=== PATIENT | male | born 1950 | race Caucasian/White ===

== ENCOUNTER 2018-03-31 06:36 | Inpatient (IN) | payer BC, MEDICARE ==
[2018-03-31] MEDS: GABAPENTIN 300 MG CAP PO ×2 (06:00→20:39)
[2018-03-31] MEDS: CEFAZOLIN 2 GM/50 ML (PMX) 50 ML IVPB (06:00)
[2018-03-31] MEDS: DEXAMETHASONE 1 MG TAB PO (06:00)
[2018-03-31] MEDS: TRANEXAMIC ACID 1,000 MG in DEXTROSE 5% 100 ML IVPB (06:00)
[2018-03-31] MEDS: traMADol 50 MG TAB PO (06:00)
[~2018-03-31 06:36] MED LIST: BUPIVACAINE 0.5% (SDV) 30 ML, morphine SULFATE (PF) 8 MG, EPINEPHrine 0.3 MG, KETOROLAC... IRR; LACTATED RINGER'S 1,000 ML IV*
[2018-03-31] MEDS ORDERED: EPHEDrine SULFATE 50 MG/5 ML SYG (07:00)
[2018-03-31] MEDS ORDERED: CEFAZOLIN 1 GM INJ (07:11)
[2018-03-31] MEDS ORDERED: PROPOFOL 20 ML (07:11)
[2018-03-31] MEDS ORDERED: ROCURONIUM 50 MG INJ (07:11)
[2018-03-31] MEDS ORDERED: FENTAnyl 50 MCG/ML VIAL ×2 (07:12→08:52)
[2018-03-31] MEDS ORDERED: MIDAZOLAM 1 MG/ML 2 ML INJ (07:12)
[2018-03-31] MEDS ORDERED: ROPIVACAINE 0.5 % 30 ML VIAL (07:12)
[2018-03-31] MEDS ORDERED: hydrALAzine 20 MG INJ IV (08:00)
[2018-03-31] MEDS ORDERED: HYDROmorphONE 1 MG/5 ML IV SYRINGE IV ×3 (08:00)
[2018-03-31] MEDS ORDERED: FENTAnyl 50 MCG/ML VIAL IV ×3 (08:00)
[2018-03-31] MEDS ORDERED: LABETALOL HCL 20MG INJ IV (08:00)
[2018-03-31] MEDS ORDERED: METOCLOPRAMIDE 10 MG INJ IV (08:00)
[2018-03-31] MEDS ORDERED: OXYCODONE/ACETAMINOPHEN (5/325) TAB PO ×3 (08:00→10:30)
[2018-03-31] MEDS ORDERED: MEPERIDINE 25 MG INJ IV (08:00)
[2018-03-31] MEDS ORDERED: EPHEDrine SULFATE 50 MG/5 ML SYG IV (08:00)
[2018-03-31] MEDS ORDERED: DIPHENHYDRAMINE 50 MG INJ IV ×2 (08:00→10:30)
[2018-03-31] MEDS ORDERED: ONDANSETRON 4 MG INJ IV ×2 (08:00→10:30)
[2018-03-31] MEDS: THROMBIN 5000 UNIT VIAL (08:29)
[2018-03-31] MEDS: BUPIVACAINE 0.5%/EPI (SDV) 30 ML INJ (08:29)
[2018-03-31] MEDS: CA CHLORIDE 10% 10 ML SYRINGE (08:29)
[2018-03-31] MEDS: POLYMYXIN/BACITRACIN 1L IRRIG (08:29)
[2018-03-31] MEDS ORDERED: ACETAMINOPHEN 1000MG/100ML IV 100 ML (09:13)
[2018-03-31] MEDS ORDERED: DEXAMETHASONE 4 MG/ML 1 ML INJ (09:14)
[2018-03-31] MEDS ORDERED: ONDANSETRON 4 MG INJ (09:14)
[2018-03-31] MEDS ORDERED: KETOROLAC 30 MG INJ (09:14)
[2018-03-31] MEDS ORDERED: METOCLOPRAMIDE 10 MG INJ (09:14)
[2018-03-31] MEDS ORDERED: LABETALOL HCL 20MG INJ (09:33)
[2018-03-31] MEDS ORDERED: PHENYLephrine (100 MCG/ML) 5ML SYG (10:08)
[2018-03-31] MEDS ORDERED: SUGAMMADEX SODIUM 200 MG/2 ML VIAL IV (10:10)
[2018-03-31] MEDS ORDERED: ZOLPIDEM 5 MG TAB PO (10:30)
[2018-03-31] MEDS ORDERED: MAGNESIUM HYDROXIDE 30ML CUP PO (10:30)
[2018-03-31] MEDS ORDERED: ACETAMINOPHEN 500 MG TAB PO (10:30)
[2018-03-31] MEDS ORDERED: morphine 2 MG INJ IV ×2 (10:30)
[2018-03-31] MEDS: TRANEXAMIC ACID 1,000 MG in DEXTROSE 5% 100 ML IV (10:49)
[2018-03-31] MEDS: DEXAMETHASONE 2 MG TAB PO ×3 (12:27→23:27)
[2018-03-31] MEDS: KETOROLAC 15 MG INJ IV (12:27)
[2018-03-31] MEDS: CEFAZOLIN 1 GM/50 ML (PMX) 50 ML IVPB ×2 (15:00→23:27)
[2018-03-31] MEDS: LATANOPROST 0.005% 2.5 ML OPH BOTH EYES (20:39)
[2018-03-31] MEDS: SENNA/DOCUSATE NA (8.6MG/50MG) TAB PO (20:39)
[2018-03-31] MEDS: OXYCODONE/ACETAMINOPHEN (5/325) TAB PO (20:39)
[2018-03-31] MEDS: ATORVASTATIN 10 MG TAB PO (20:39)
[2018-04-01] MEDS: CEFAZOLIN 1 GM/50 ML (PMX) 50 ML IVPB (05:54)
[2018-04-01] MEDS: DEXAMETHASONE 2 MG TAB PO (05:54)
[2018-04-01] MEDS: SENNA/DOCUSATE NA (8.6MG/50MG) TAB PO (08:31)
[2018-04-01] MEDS: ASPIRIN 81 MG TAB PO (08:31)
[2018-04-01] MEDS: OXYCODONE/ACETAMINOPHEN (5/325) TAB PO (08:31)
== END 2018-04-01 10:20 | disposition home or self-care (01) | DRG 483 ==
LOC: SDS 06:36 → REC 10:25 → MS1 11:46
PROC: 0RRJ00Z Replacement of Right Shoulder Joint with Reverse Ball and Socket Synthetic Substitute, Open Approach (ICD-10-PCS; principal; 2018-03-31 08:30)
PROC: 0PB90ZZ Excision of Right Clavicle, Open Approach (ICD-10-PCS; 2018-03-31 08:30)
DX: M19.211 Secondary osteoarthritis, right shoulder (principal); H40.1131 Primary open-angle glaucoma, bilateral, mild stage; E78.5 Hyperlipidemia, unspecified
CPT/HCPCS: 73030-RT; 86999; 97166